=== PATIENT | male | born 1950 | race Caucasian/White ===

== ENCOUNTER 2017-11-02 08:46 | Emergency (ER) | payer MEDICARE ==
[~2017-11-02] VITALS: Ht 610.5 cm; Wt 86.4 kg
[2017-11-02] MEDS ORDERED: fentaNYL/PF 50MCG/1 ML 2ML syringe IV ONE (09:15)
[2017-11-02] MEDS ORDERED: normal saline 1000ML IV soln IVB ONE (09:15)
[2017-11-02] MEDS ORDERED: ondansetron/PF 4mg/2ml inj IV ONE (09:15)
[2017-11-02 09:32] LABS: BASOPHILS % (AUTO) 0.4 % (0-1); EOSINOPHILS % (AUTO) 0.2 % (0-6); HEMATOCRIT 29.8 % (42.0-52.0); LYMPHOCYTES % (AUTO) 9.5 % (21-51); MEAN CORPUSCULAR HGB CONC 33.5 % (33.0-36.5); MEAN CORPUSCULAR VOLUME 86.4 FL (78-98); MEAN PLATELET VOLUME 6.8 FL (7.4-10.4); MONOCYTES # (AUTO) 1.1 X10'3 (0-0.9); MONOCYTES % (AUTO) 10.7 % (2-12); NEUTROPHILS # (AUTO) 8.2 X10'3 (1.8-7.7); NEUTROPHILS % (AUTO) 79.2 % (42-75); PLATELET COUNT 400 X10'3 (140-440); RED BLOOD COUNT 3.44 X10'6 (4.70-6.10); RED CELL DISTRIBUTION WIDTH 13.7 % (11.5-14.5); WHITE BLOOD COUNT 10.3 X10'3 (4.5-11.0)
[2017-11-02 09:40] LABS: INR 1.3 INR; PROTHROMBIN TIME 13.6 SECONDS (9.0-12.0)
[2017-11-02 09:49] LABS: ALANINE AMINOTRANSFERASE 161 U/L (12-78); ALBUMIN 2.3 G/DL (3.4-5.0); ALBUMIN/GLOBULIN RATIO 0.5 (1.1-1.5); ALKALINE PHOSPHATASE 295 IU/L (46-116); ANION GAP 8 (8-16); ASPARTATE AMINO TRANSFERASE 156 U/L (10-37); BILIRUBIN,TOTAL 1.5 MG/DL (0.1-1.0); BLOOD UREA NITROGEN 20 MG/DL (7-18); BUN/CREATININE RATIO 21.1 (5.4-32.0); CALCIUM 8.1 MG/DL (8.5-10.1); CHLORIDE 102 MMOL/L (99-107); CREATININE 0.95 MG/DL (0.60-1.10); GLUCOSE 125 MG/DL (70-104); POTASSIUM 3.5 MMOL/L (3.5-5.1); SODIUM 137 MMOL/L (135-145); TOTAL CARBON DIOXIDE 27.1 MMOL/L (24-32); TOTAL PROTEIN 6.7 G/DL (6.4-8.2); eGFR 79 ML/MIN
[2017-11-02] MEDS ORDERED: COU5T PO (09:58)
[2017-11-02] MEDS ORDERED: ATOR20TA PO (10:14)
[2017-11-02] MEDS ORDERED: MORP30TA PO (10:14)
[2017-11-02] MEDS ORDERED: LISI-600 PO (10:14)
[2017-11-02] MEDS ORDERED: FLO0.4C PO (10:21)
[2017-11-02] MEDS ORDERED: LIDOcaine 1% 30ml preserv. free vial IJ ONE (10:35)
[2017-11-02] MEDS ORDERED: LIDOcaine 1%/PF 5ML 10 MG/ML VIAL IJ ONE (10:45)
[2017-11-02] MEDS ORDERED: HYDR-569 PO (11:08)
[2017-11-02 11:32] VITALS: BP 146/90
[2017-11-02] MEDS ORDERED: CEPH-571 PO (11:37)
== END 2017-11-02 11:37 | disposition home or self-care (01) ==
LOC: ER 08:46
DX: S80.02XA Contusion of left knee, initial encounter (principal); M25.062 Hemarthrosis, left knee; D68.9 Coagulation defect, unspecified; F17.200 Nicotine dependence, unspecified, uncomplicated; Z86.718 Personal history of other venous thrombosis and embolism; Z98.890 Other specified postprocedural states; Z79.01 Long term (current) use of anticoagulants; Z79.899 Other long term (current) drug therapy; W18.39XA Other fall on same level, initial encounter; Y93.89 Activity, other specified; Y92.89 Other specified places as the place of occurrence of the external cause; Y99.8 Other external cause status
CPT/HCPCS: 20610; 36415; 73700; 80053; 85025; 85610; 96374; 96375; 99285; A6449; J2001; J2405; J3010; J7030

== ENCOUNTER 2018-07-13 11:36 | Emergency (ER) | payer MEDICARE ==
[~2018-07-13] VITALS: Ht 180.3 cm; Wt 75.0 kg
[~2018-07-13 11:36] MED LIST: ATOR20TA PO; CEPH-571 PO; COU5T PO; FLO0.4C PO; HYDR-4383 PO; LISI-600 PO; MORP30TA PO
[2018-07-13 11:46] VITALS: BP 138/72
[2018-07-13] MEDS ORDERED: TETanus/Pertussis (Acell)/Diphther VAC/PF (Tdap-Adult) 0.5ml syringe IM ONE (13:50)
[2018-07-13] MEDS ORDERED: LIDOcaine 1% w/epiNEPHrine 1:200,000 30ml vial IM ONE (13:50)
== END 2018-07-13 15:23 | disposition home or self-care (01) ==
LOC: ER 11:36
DX: S61.211A Laceration without foreign body of left index finger without damage to nail, initial encounter (principal); Z86.718 Personal history of other venous thrombosis and embolism; W26.8XXA Contact with other sharp object(s), not elsewhere classified, initial encounter; Y93.89 Activity, other specified; Y92.89 Other specified places as the place of occurrence of the external cause; Y99.8 Other external cause status
CPT/HCPCS: 12001; 73140; 90471; 90715; 99283; J3490